=== PATIENT | male | born 1990 | race Hispanic/Latino ===

== ENCOUNTER 2019-07-28 16:50 | Emergency (ER) | payer SELFPAY ==
[2019-07-28 17:04] VITALS: BP 160/100
--- NOTE | 2019-07-28 19:23 | Emergency Department Report ---
Chief Complaint: Extremity Injury, Lower Stated Complaint: POSS BROKEN RT ANKLE Time Seen by Provider: 07/28/19 19:18 - HPI History of Present Illness: 29 y/o male come in for right ankle pain. States that he had bent down and applied all of his weight now has pain. Has not taken anything for pain. - Exam Vital Signs: Vital Signs 07/28/19 17:03 Temperature 98.8 F Pulse Rate 103 H Respiratory 16 Rate Blood Pressure 160/100 [Left] O2 Sat by Pulse 96 Oximetry Physical Exam: AxO times 3 NAD right ankle mild swelling no tenderness to palpate no discoloration ambulating w ithout difficulties. MSE screening note: Focused history and physical exam performed. Due to findings the following was ordered: 29 y/o male come in for right ankle pain. States that he had bent down and applied all of his weight now has pain. Has not taken anything for pain. Recommend to take Ibuprofen apply Ice donis bandage and Follow up with ortho. ED Disposition for MSE Disposition: MED SCREENING EXAM-LEFT Is pt being admited?: No Does the pt Need Aspirin: No Condition: Stable Instructions: Ankle Sprain (ED) Additional Instructions: Recommend to take Ibuprofen apply Ice donis bandage and Follow up with ortho. Referrals: ANA LANDAVERDE MD [Staff Physician] - 3-5 Days
== END 2019-07-28 20:00 | disposition left against medical advice (07) ==
LOC: ED 16:50
DX: M25.571 Pain in right ankle and joints of right foot (principal)
CPT/HCPCS: 99282